=== PATIENT | female | born 1930 | race Caucasian/White ===

== ENCOUNTER 2017-08-13 07:41 | Outpatient (CLI) | payer MEDICARE, BC | END 2017-08-13 07:42 | disposition home or self-care (01) | LOC: BICMAMMO 07:41 | PROVIDERS: ATTEND Family Medicine | DX: Z12.31 Encounter for screening mammogram for malignant neoplasm of breast (principal) | CPT/HCPCS: 77063; G0202; 77067 ==

== ENCOUNTER 2018-03-20 15:30 | Emergency (ER) | payer MEDICARE, BC ==
--- NOTE | 2018-03-20 16:17 | RAD ---
LEFT HAND 3 VIEWS: Date: 03/20/18 HISTORY: Injury. Swelling. COMPARISON: None. FINDINGS: No acute fracture or malalignment. Mild differential joint space narrowing. IMPRESSION: No acute fracture is appreciated. POS: [facility]
[2018-03-20] MEDS ORDERED: Acetaminophen 500 MG TAB ONE (17:25)
[2018-03-20] MEDS ORDERED: Bacitracin Zinc 1 Packet ONE (17:25)
[2018-03-20] MEDS ORDERED: Adacel (T-DAP) 0.5 ML VIAL ONE (17:25)
== END 2018-03-20 16:51 | disposition home or self-care (01) ==
LOC: ERS 15:30
DX: S60.222A Contusion of left hand, initial encounter (principal); I10 Essential (primary) hypertension; W22.8XXA Striking against or struck by other objects, initial encounter; Y92.59 Other trade areas as the place of occurrence of the external cause
CPT/HCPCS: 90471; 90715

== ENCOUNTER 2018-08-19 09:33 | Outpatient (CLI) | payer MEDICARE, BC | END 2018-08-19 09:34 | disposition home or self-care (01) | LOC: BICMAMMO 09:33 | PROVIDERS: ATTEND Family Medicine | DX: Z12.31 Encounter for screening mammogram for malignant neoplasm of breast (principal) | CPT/HCPCS: 77063; 77067 ==